=== PATIENT | male | born 1960 | race Caucasian/White ===

== ENCOUNTER 2022-08-08 06:01 | Day surgery (SDC) | payer BC, OTHER ==
[2022-08-05 14:39] VITALS: BMI 36.9
[~2022-08-08 06:01] MED LIST: CEFAZOLIN 2 GM in DEXTROSE 5%-WATER - 50 ML IVPB ONE; CELECOXIB 200 MG CAPSULE PO ONE; TRANEXAMIC ACID 1000 MG/10 ML VIAL IVPUSH ONE
[2022-08-08] MEDS ORDERED: ceFAZolin SODIUM 1 GM VIAL ONE (07:04)
[2022-08-08] MEDS ORDERED: VANCOMYCIN 1,000 MG VIAL (RESTRICTED TO ID ONLY) ONE (07:04)
[2022-08-08] MEDS ORDERED: THROMBIN (BOVINE) 5,000 UNIT VIAL TP ONE ×3 (07:05→09:00)
[2022-08-08] MEDS ORDERED: MIDAZOLAM HCL 2 MG/2 ML SINGLE DOSE VIAL ONE (07:44)
[2022-08-08] MEDS ORDERED: PROPOFOL 20 ML ONE ×2 (07:46→08:19)
[2022-08-08] MEDS ORDERED: BUPIVACAINE LIPOSOME/PF (EXPAREL) 266 MG/20 ML VIAL ONE (07:51)
[2022-08-08] MEDS ORDERED: BUPIVACAINE HCL/PF 2.5 MG/ML - 30 ML VIAL IJ ONE (07:51)
[2022-08-08] MEDS ORDERED: ONDANSETRON 4 MG/2 ML VIAL IVPUSH PRN ×2 (08:00→09:24)
[2022-08-08] MEDS ORDERED: LACTATED RINGERS SOLUTION 1,000 ML IV SCH ×2 (08:00→09:30)
[2022-08-08] MEDS ORDERED: TRANEXAMIC ACID 1000 MG/10 ML VIAL ONE (08:21)
[2022-08-08] MEDS ORDERED: BUPIVICAINE 0.25%/MORPH PF/KETOROLAC - 51ML DISP.SYRINGE IA ONE ×3 (08:45→09:30)
[2022-08-08] MEDS ORDERED: oxyCODONE HCL 5 MG TABLET PO PRN (09:24)
[2022-08-08] MEDS ORDERED: PATIENT'S OWN MEDICATION (NON-FORMULARY) (Candesartan/Hydrochlorothiazid [Candesartan-Hctz PO SCH (10:00)
[2022-08-08] MEDS ORDERED: ACETAMINOPHEN 1000 MG/100 ML BAG IVPB ONE (11:00)
[2022-08-08] MEDS: SENNOSIDES/DOCUSATE COMBO (SENNA PLUS) TABLET (UD) PO SCH ×2 (14:06→21:36)
[2022-08-08] MEDS: MULTIVITAMINS (DAILY MVI) TABLET (FP) PO SCH (14:07)
[2022-08-08] MEDS: PANTOPRAZOLE 40 MG TABLET PO SCH (14:07)
[2022-08-08 14:19] VITALS: RESP 18
[2022-08-08] MEDS: oxyCODONE HCL 5 MG TABLET PO PRN ×2 (16:27→22:20)
[2022-08-08] MEDS: CEFAZOLIN SODIUM 2 GM in DEXTROSE 5%-WATER 100 ML IVPB SCH (16:28)
[2022-08-08] MEDS: ACETAMINOPHEN 500 MG TABLET (FP) PO SCH (18:46)
[2022-08-09] MEDS: ACETAMINOPHEN 500 MG TABLET (FP) PO SCH ×2 (00:20→06:21)
[2022-08-09] MEDS: CEFAZOLIN SODIUM 2 GM in DEXTROSE 5%-WATER 100 ML IVPB SCH (00:20)
[2022-08-09] MEDS ORDERED: ASPIRIN 325 MG TABLET PO SCH (08:00)
[2022-08-09] MEDS: PANTOPRAZOLE 40 MG TABLET PO SCH (09:05)
[2022-08-09] MEDS: SENNOSIDES/DOCUSATE COMBO (SENNA PLUS) TABLET (UD) PO SCH (09:05)
[2022-08-09] MEDS: MULTIVITAMINS (DAILY MVI) TABLET (FP) PO SCH (09:05)
[2022-08-09] MEDS ORDERED: LOSARTAN 50MG/HCTZ 12.5MG 1 TAB PO SCH (10:00)
[2022-08-09] MEDS ORDERED: LOSARTAN POTASSIUM 50 MG TABLET PO SCH (10:00)
[2022-08-09] MEDS ORDERED: amLODIPine BESYLATE 5 MG TABLET (FP) PO SCH (10:00)
[2022-08-09 10:21] VITALS: BP 156/88; PULSE 81; TEMP 98.2
== END 2022-08-09 11:47 | disposition home health service (06) ==
LOC: FASUSAT 06:01 → FM/S 11:44 → FASUSAT 08-09 11:47
PROVIDERS: ATTEND Orthopaedic Surgery
PROC: 8E0YXBZ Computer Assisted Procedure of Lower Extremity (ICD-10-PCS; 2022-08-08)
PROC: 8E0Y0CZ Robotic Assisted Procedure of Lower Extremity, Open Approach (ICD-10-PCS; 2022-08-08)
PROC: 0SRD0L9 Replacement of Left Knee Joint with Medial Unicondylar Synthetic Substitute, Cemented, Open Approach (ICD-10-PCS; principal; 2022-08-08 08:26)
DX: M17.12 Unilateral primary osteoarthritis, left knee (principal)
CPT/HCPCS: 20985; 27446; C1776; S2900; 73560-TC-LT-FY; 88305-TC; 88311-TC; 94760; 97010-GP; 97116-GP; 97162-GP; C1889

== ENCOUNTER 2022-08-22 05:58 | Day surgery (SDC) | payer BC, OTHER ==
[2022-08-20 09:29] VITALS: BMI 36.9
[2022-08-22] MEDS ORDERED: THROMBIN (BOVINE) 5,000 UNIT VIAL TP ONE (07:05)
[2022-08-22] MEDS ORDERED: ceFAZolin SODIUM 1 GM VIAL ONE ×2 (07:05→08:36)
[2022-08-22] MEDS ORDERED: MIDAZOLAM HCL 2 MG/2 ML SINGLE DOSE VIAL ONE ×4 (07:49→09:21)
[2022-08-22] MEDS ORDERED: BUPIVACAINE HCL/PF 0.5% (5 MG/ML) 30 ML VIAL IJ ONE (07:49)
[2022-08-22] MEDS ORDERED: FENTANYL CITRATE/PF 50 MCG/ML VIAL ONE (07:49)
[2022-08-22] MEDS ORDERED: BUPIVACAINE HCL/PF 0.5% (5MG/ML) 10 ML VIAL ONE (07:50)
[2022-08-22] MEDS ORDERED: DEXAMETHASONE SOD PHOSPHATE 10 MG/1 ML VIAL ONE (07:50)
[2022-08-22] MEDS ORDERED: CEFAZOLIN 2 GM in DEXTROSE 5%-WATER - 50 ML IVPB ONE (08:00)
[2022-08-22] MEDS ORDERED: ATROPINE SO4 0.4 MG/1 ML VIAL ONE (08:52)
[2022-08-22] MEDS ORDERED: DEXAMETHASONE SOD PHOSPHATE 4 MG/1 ML VIAL ONE (08:52)
[2022-08-22] MEDS ORDERED: ONDANSETRON 4 MG/2 ML VIAL ONE (08:52)
[2022-08-22] MEDS ORDERED: BUPIVICAINE 0.25%/MORPH PF/KETOROLAC - 51ML DISP.SYRINGE IA ONE ×3 (09:20→10:00)
[2022-08-22] MEDS ORDERED: ONDANSETRON 4 MG/2 ML VIAL IVPUSH PRN ×2 (09:48→10:06)
[2022-08-22] MEDS ORDERED: PATIENT'S OWN MEDICATION (NON-FORMULARY) (Candesartan/Hydrochlorothiazid [Candesartan-Hctz PO SCH (10:00)
[2022-08-22] MEDS ORDERED: CELECOXIB 200 MG CAPSULE PO ONE (10:00)
[2022-08-22] MEDS ORDERED: TRANEXAMIC ACID 1000 MG/10 ML VIAL IVPUSH ONE (10:00)
[2022-08-22] MEDS ORDERED: LACTATED RINGERS SOLUTION 1,000 ML IV SCH ×2 (10:00→10:15)
[2022-08-22] MEDS ORDERED: ACETAMINOPHEN 1000 MG/100 ML BAG IVPB ONE (10:06)
[2022-08-22] MEDS ORDERED: oxyCODONE HCL 5 MG TABLET PO PRN (10:06)
[2022-08-22] MEDS ORDERED: CEFAZOLIN 2 GM in DEXTROSE 5%-WATER - 50 ML IVPB SCH (16:00)
[2022-08-22] MEDS: ACETAMINOPHEN 500 MG TABLET (FP) PO SCH ×2 (17:40→23:52)
[2022-08-22] MEDS: oxyCODONE HCL 5 MG TABLET PO PRN (21:19)
[2022-08-22] MEDS: oxyCODONE HCL 10 MG SUSTAINED ACTING TABLET PO SCH (21:20)
[2022-08-22] MEDS: SENNOSIDES/DOCUSATE COMBO (SENNA PLUS) TABLET (UD) PO SCH (21:20)
[2022-08-23] MEDS ORDERED: CEFAZOLIN 2 GM in DEXTROSE 5%-WATER 100 ML IVPB SCH
[2022-08-23] MEDS: ACETAMINOPHEN 500 MG TABLET (FP) PO SCH (06:18)
[2022-08-23] MEDS: oxyCODONE HCL 5 MG TABLET PO PRN (06:19)
[2022-08-23] MEDS ORDERED: ASPIRIN 325 MG TABLET PO SCH (08:00)
[2022-08-23] MEDS: MULTIVITAMINS (DAILY MVI) TABLET (FP) PO SCH ×2 (08:46→10:36)
[2022-08-23] MEDS: PANTOPRAZOLE 40 MG TABLET PO SCH ×2 (08:46→10:36)
[2022-08-23] MEDS ORDERED: amLODIPine BESYLATE 5 MG TABLET (FP) PO SCH (10:00)
[2022-08-23] MEDS ORDERED: LOSARTAN 50MG/HCTZ 12.5MG 1 TAB PO SCH (10:00)
[2022-08-23] MEDS ORDERED: LOSARTAN POTASSIUM 50 MG TABLET PO SCH (10:00)
[2022-08-23 10:08] VITALS: BP 141/71; PULSE 80; RESP 17; TEMP 98.4
[2022-08-23] MEDS: SENNOSIDES/DOCUSATE COMBO (SENNA PLUS) TABLET (UD) PO SCH (10:36)
[2022-08-23] MEDS: oxyCODONE HCL 10 MG SUSTAINED ACTING TABLET PO SCH (10:36)
== END 2022-08-23 10:45 | disposition home health service (06) ==
LOC: FASUSAT 05:58 → FM/S 11:06 → FASUSAT 08-23 10:45
PROVIDERS: ATTEND Orthopaedic Surgery
PROC: 8E0Y0CZ Robotic Assisted Procedure of Lower Extremity, Open Approach (ICD-10-PCS; 2022-08-22)
PROC: 0SRC0L9 Replacement of Right Knee Joint with Medial Unicondylar Synthetic Substitute, Cemented, Open Approach (ICD-10-PCS; principal; 2022-08-22 08:41)
DX: M17.11 Unilateral primary osteoarthritis, right knee (principal)
CPT/HCPCS: 20985; 27446; C1776; S2900; 73560-TC-RT-FY; 88305-TC; 88311-TC; 94760; 97116-GP; 97162-GP; C1889; J1100